=== PATIENT | male | born 1950 | race African-American/Black ===

== ENCOUNTER 2019-11-24 15:36 | Inpatient (IN) ==
[2019-11-24] MEDS ORDERED: SODIUM CHLORIDE 0.9% 1,000 ML IV STA (16:22)
[2019-11-24 16:57] LABS: Basophils % 0.5 % (0.0-0.8); Eosinophils # 0.1 10*3/uL (0.0-0.87); Hematocrit 41.9 VOL% (42.0-52.0); Hemoglobin 14.4 GM/DL (14.0-18.0); Immature Granulocytes % 0.2 %; Immature Granulocytes Absolute 0.01 #; Lymphocytes # 1.4 10*3/uL (1.4-4.0); Mean Corpuscular HGB Conc 34.4 GM/DL (32-36); Mean Corpuscular Volume 89.3 FL (87-102); Mean Platelet Volume 11.6 FL (9.6-12.0); Monocytes % 8.1 % (1.7-12.7); Neutrophils % 68.2 % (38.7-73.9); Platelet Count 168 T/CUMM (130-400); Red Blood Count 4.69 MC/CUMM (3.8-5.5); Red Cell Distribution Width 13.8 % (9.3-17.3); White Blood Count 6.4 T/CUMM (4-12)
[2019-11-24 17:22] LABS: Alanine Aminotransferase 23 U/L (16-61); Albumin 3.8 G/DL (3.4-5.0); Alkaline Phosphatase 71 U/L (45-117); Aspartate Amino Transferase 36 U/L (0-37); Blood Urea Nitrogen 21 MG/DL (7-18); Estimated Glom Filtration Rate 54 ML/MIN; Glucose 73 MG/DL (74-106); Osmolality,Calculated 289.7 MOS/KG (273-304); Partial Thromboplastin Time 28.9 SECS (23.9-33.8); Total Protein 7.5 G/DL (6.4-8.3)
[2019-11-24 17:29] LABS: Troponin I 0.205 NG/ML (0.00-0.045)
[2019-11-24] MEDS ORDERED: hydrALAZINE 20 MG/1 ML VIAL IV STA ×2 (18:34→19:34)
[2019-11-24] MEDS ORDERED: ENOXAPARIN 80 MG/0.8 ML SYRINGE SUBCUT STA (19:46)
[2019-11-24 19:51] LABS: Apearance,Urine CLEAR (Clear); Bilirubin,Urine Negative (Negative); Blood, Urine Small mg/dL (Negative); Glucose,Urine (UA) Negative (Negative); Ketones,Urine 5 mg/dL (Negative); Mucus,Urine Occasional /LPF (Occasional); Nitrite,Urine Negative (Negative); Protein,Urine 30 MG/DL; RBC,Urine <1 /HPF (0-4); Urine Color Straw (Yellow); Urine Specific Gravity 1.008 (1.001-1.035); Urine Urobilinogen < 2.0 EU/DL (0.2-1.0); WBC,Urine <1 /HPF (0-6)
[2019-11-24 20:04] LABS: Barbiturates Screen,Urine Negative (Negative); Benzodiazepines Screen,Urine Negative (Negative); Cannabinoid Screen,Urine Negative (Negative); Opiate Screen,Urine Negative (Negative); Phencyclidine Screen,Urine Negative (Negative)
[2019-11-24] MEDS ORDERED: ONDANSETRON 4 MG/2 ML VIAL IV PRN (21:46)
[2019-11-24] MEDS ORDERED: DOCUSATE SODIUM 100 MG CAPSULE PO PRN (21:46)
[2019-11-24] MEDS ORDERED: ACETAMINOPHEN 325 MG TABLET PO PRN (21:46)
[2019-11-24] MEDS: cloNIDine 0.1 MG TABLET PO PRN (22:53)
[2019-11-25] MEDS: SODIUM CHLORIDE 0.9% 1,000 ML IV SCH ×5 (01:20→22:00)
[2019-11-25] MEDS: cloNIDine 0.1 MG TABLET PO PRN ×2 (03:05→20:34)
[2019-11-25 04:45] LABS: Basophils % 0.8 % (0.0-0.8); Eosinophils # 0.2 10*3/uL (0.0-0.87); Eosinophils % 3.3 % (0.00-10.9); Hematocrit 38.5 VOL% (42.0-52.0); Hemoglobin 13.5 GM/DL (14.0-18.0); Immature Granulocytes % 0.2 %; Immature Granulocytes Absolute 0.01 #; Lymphocytes # 1.5 10*3/uL (1.4-4.0); Lymphocytes % 29.3 % (21.2-54.2); Mean Corpuscular HGB Conc 35.1 GM/DL (32-36); Mean Corpuscular Volume 88.3 FL (87-102); Mean Platelet Volume 11.5 FL (9.6-12.0); Monocytes % 9.2 % (1.7-12.7); Neutrophils % 57.2 % (38.7-73.9); Platelet Count 141 T/CUMM (130-400); Red Blood Count 4.36 MC/CUMM (3.8-5.5); Red Cell Distribution Width 13.6 % (9.3-17.3); White Blood Count 5.2 T/CUMM (4-12)
[2019-11-25 05:23] LABS: Calcium 8.4 MG/DL (8.5-10.1); Risk Ratio 2.55; Thyroid Stimulating Hormone 0.737 uIU/ml (0.358-3.74); VLDL CHOLESTEROL 12.4 MG/DL
[2019-11-25] MEDS ORDERED: MAGNESIUM SULF RIDER 1 GM in PREMIX 1 EACH IV ONE (08:49)
[2019-11-25] MEDS ORDERED: POTASSIUM CHLORIDE 20 MEQ TABLET PO ONE ×2 (08:50→13:00)
[2019-11-25] MEDS ORDERED: ENOXAPARIN 80 MG/0.8 ML SYRINGE SUBCUT SCH (09:00)
[2019-11-25] MEDS: ASPIRIN EC 81 MG TABLET PO SCH (09:10)
[2019-11-25] MEDS: carvediloL 3.125 MG TABLET PO SCH ×2 (09:10→20:34)
[2019-11-25 10:56] LABS: Hypochromasia Slight; Microcytosis Slight; Platelet Estimate Adequate; Target Cells Few
[2019-11-25] MEDS: APIXABAN 5 MG TABLET PO SCH (20:34)
[2019-11-25] MEDS ORDERED: DILTIAZEM 25 MG/5 ML VIAL IV STA (20:44)
[2019-11-25] MEDS ORDERED: LORazepam 2 MG/1 ML VIAL ONE (20:45)
[2019-11-25] MEDS ORDERED: DILTIAZEM 60 MG TABLET PO STA (20:46)
[2019-11-25] MEDS ORDERED: ALBUTEROL/IPRATROPIUM 3 ML NEB RESP TX STA (20:46)
[2019-11-25] MEDS ORDERED: LORazepam 2 MG/1 ML VIAL IV PRN ×2 (20:50→20:55)
[2019-11-25] MEDS ORDERED: LORazepam 2 MG/1 ML VIAL IV STA (20:54)
[2019-11-25] MEDS: DILTIAZEM 60 MG TABLET PO SCH (21:46)
[2019-11-26] MEDS: LORazepam 2 MG/1 ML VIAL IV PRN ×4 (01:27→17:54)
[2019-11-26] MEDS: ALBUTEROL/IPRATROPIUM 3 ML NEB RESP TX SCH ×3 (07:27→19:10)
[2019-11-26] MEDS: carvediloL 3.125 MG TABLET PO SCH ×2 (08:51→21:28)
[2019-11-26] MEDS: ASPIRIN EC 81 MG TABLET PO SCH (08:52)
[2019-11-26] MEDS: DILTIAZEM 60 MG TABLET PO SCH ×4 (08:52→21:28)
[2019-11-26] MEDS: APIXABAN 5 MG TABLET PO SCH ×2 (08:53→21:29)
[2019-11-26] MEDS ORDERED: amLODIPine 5 MG TABLET PO SCH (09:00)
[2019-11-26 09:16] LABS: Basophils % 0.8 % (0.0-0.8); Eosinophils # 0.2 10*3/uL (0.0-0.87); Eosinophils % 4.7 % (0.00-10.9); Hemoglobin 13.8 GM/DL (14.0-18.0); Immature Granulocytes % 0.2 %; Immature Granulocytes Absolute 0.01 #; Lymphocytes # 1.3 10*3/uL (1.4-4.0); Lymphocytes % 26.4 % (21.2-54.2); Mean Corpuscular HGB Conc 35.4 GM/DL (32-36); Mean Corpuscular Volume 88.6 FL (87-102); Mean Platelet Volume 11.2 FL (9.6-12.0); Monocytes % 5.5 % (1.7-12.7); Neutrophils % 62.4 % (38.7-73.9); Platelet Count 143 T/CUMM (130-400); Red Cell Distribution Width 13.8 % (9.3-17.3); White Blood Count 5.1 T/CUMM (4-12)
[2019-11-26 09:52] LABS: Calcium 8.6 MG/DL (8.5-10.1); Osmolality,Calculated 291.7 MOS/KG (273-304)
[2019-11-26 09:56] LABS: Albumin 3.2 G/DL (3.4-5.0); Bilirubin,Total 0.9 MG/DL (0.2-1.0); Calcium 8.6 MG/DL (8.5-10.1); Osmolality,Calculated 288.8 MOS/KG (273-304); Total Protein 6.9 G/DL (6.4-8.3)
[2019-11-26 10:16] LABS: Folate 6.8 NG/ML (5.4-24.0)
[2019-11-26] MEDS: THIAMINE INJ 100 MG, FOLIC ACID INJ 1 MG, MULTIVITAMIN INJ 10 ML in SODIUM CHLORIDE 0.4... IV SCH (10:24)
[2019-11-26 10:50] LABS: Platelet Estimate Adequate; Polychromasia Slight; Target Cells Slight
[2019-11-26] MEDS ORDERED: FUROSEMIDE 40 MG/4 ML VIAL IV ONE (11:50)
[2019-11-26] MEDS: FUROSEMIDE 40 MG/4 ML VIAL IV SCH ×2 (14:19→17:28)
[2019-11-26] MEDS ORDERED: LORazepam 2 MG/1 ML VIAL IV PRN (20:06)
[2019-11-26] MEDS: chlordiazePOXIDE 25 MG CAPSULE PO SCH (21:28)
[2019-11-26] MEDS: ATORVASTATIN 40 MG TABLET PO SCH (21:28)
[2019-11-27] MEDS: FUROSEMIDE 40 MG/4 ML VIAL IV SCH ×3 (01:14→12:47)
[2019-11-27 05:46] LABS: Basophils % 0.7 % (0.0-0.8); Eosinophils # 0.3 10*3/uL (0.0-0.87); Eosinophils % 4.8 % (0.00-10.9); Hematocrit 42.3 VOL% (42.0-52.0); Hemoglobin 15.1 GM/DL (14.0-18.0); Immature Granulocytes % 0.2 %; Immature Granulocytes Absolute 0.01 #; Lymphocytes # 1.9 10*3/uL (1.4-4.0); Lymphocytes % 31.3 % (21.2-54.2); Mean Corpuscular HGB Conc 35.7 GM/DL (32-36); Mean Corpuscular Volume 88.1 FL (87-102); Mean Platelet Volume 11.8 FL (9.6-12.0); Platelet Count 156 T/CUMM (130-400); Red Cell Distribution Width 13.3 % (9.3-17.3); White Blood Count 6.1 T/CUMM (4-12)
[2019-11-27 06:02] LABS: Calcium 9.1 MG/DL (8.5-10.1); Osmolality,Calculated 281.3 MOS/KG (273-304)
[2019-11-27 06:09] LABS: Albumin 3.7 G/DL (3.4-5.0); Bilirubin,Total 1.6 MG/DL (0.2-1.0); Calcium 9.3 MG/DL (8.5-10.1); Osmolality,Calculated 281.3 MOS/KG (273-304); Total Protein 7.6 G/DL (6.4-8.3)
[2019-11-27] MEDS: ALBUTEROL/IPRATROPIUM 3 ML NEB RESP TX SCH ×3 (07:42→19:29)
[2019-11-27] MEDS ORDERED: POTASSIUM CHLORIDE 20 MEQ TABLET PO ONE ×2 (08:32→14:00)
[2019-11-27] MEDS ORDERED: MAGNESIUM SULF RIDER 4 GM in PREMIX 1 EACH IV PRN (08:55)
[2019-11-27] MEDS ORDERED: MAGNESIUM SULF RIDER 2 GM in PREMIX 1 EACH IV PRN (08:55)
[2019-11-27] MEDS ORDERED: DILTIAZEM CD 180 MG CAPSULE PO SCH (09:00)
[2019-11-27] MEDS: chlordiazePOXIDE 25 MG CAPSULE PO SCH ×4 (09:23→21:27)
[2019-11-27] MEDS: PANTOPRAZOLE 40 MG TABLET PO SCH (09:23)
[2019-11-27] MEDS: carvediloL 3.125 MG TABLET PO SCH ×2 (09:23→21:28)
[2019-11-27] MEDS: DILTIAZEM CD 120 MG CAPSULE PO SCH ×2 (09:23→21:27)
[2019-11-27] MEDS: hydrALAZINE 25 MG TABLET PO SCH ×2 (09:23→21:27)
[2019-11-27] MEDS: APIXABAN 5 MG TABLET PO SCH ×2 (09:24→21:27)
[2019-11-27] MEDS: ASPIRIN EC 81 MG TABLET PO SCH (09:24)
[2019-11-27] MEDS: THIAMINE INJ 100 MG, FOLIC ACID INJ 1 MG, MULTIVITAMIN INJ 10 ML in SODIUM CHLORIDE 0.4... IV SCH (11:18)
[2019-11-27] MEDS: ATORVASTATIN 40 MG TABLET PO SCH (21:27)
[2019-11-28 05:57] LABS: Basophils % 0.4 % (0.0-0.8); Eosinophils # 0.2 10*3/uL (0.0-0.87); Eosinophils % 3.8 % (0.00-10.9); Hematocrit 40.2 VOL% (42.0-52.0); Hemoglobin 14.4 GM/DL (14.0-18.0); Immature Granulocytes % 0.4 %; Immature Granulocytes Absolute 0.02 #; Lymphocytes # 1.8 10*3/uL (1.4-4.0); Lymphocytes % 32.3 % (21.2-54.2); Mean Corpuscular HGB Conc 35.8 GM/DL (32-36); Mean Corpuscular Volume 88.2 FL (87-102); Mean Platelet Volume 11.7 FL (9.6-12.0); Monocytes % 7.7 % (1.7-12.7); Neutrophils % 55.4 % (38.7-73.9); Platelet Count 153 T/CUMM (130-400); Red Blood Count 4.56 MC/CUMM (3.8-5.5); Red Cell Distribution Width 13.2 % (9.3-17.3); White Blood Count 5.6 T/CUMM (4-12)
[2019-11-28 06:17] LABS: Calcium 8.8 MG/DL (8.5-10.1); Osmolality,Calculated 280.5 MOS/KG (273-304)
[2019-11-28] MEDS: ALBUTEROL/IPRATROPIUM 3 ML NEB RESP TX SCH ×3 (07:14→22:07)
[2019-11-28] MEDS: APIXABAN 5 MG TABLET PO SCH (09:25)
[2019-11-28] MEDS: hydrALAZINE 25 MG TABLET PO SCH (09:25)
[2019-11-28] MEDS: carvediloL 3.125 MG TABLET PO SCH ×2 (09:25→21:47)
[2019-11-28] MEDS: DILTIAZEM CD 120 MG CAPSULE PO SCH ×2 (09:25→21:46)
[2019-11-28] MEDS: ASPIRIN EC 81 MG TABLET PO SCH (09:26)
[2019-11-28] MEDS: chlordiazePOXIDE 25 MG CAPSULE PO SCH ×4 (09:26→21:46)
[2019-11-28] MEDS: PANTOPRAZOLE 40 MG TABLET PO SCH (09:26)
[2019-11-28] MEDS: THIAMINE INJ 100 MG, FOLIC ACID INJ 1 MG, MULTIVITAMIN INJ 10 ML in SODIUM CHLORIDE 0.4... IV SCH (09:53)
[2019-11-28] MEDS ORDERED: POTASSIUM CHLORIDE 20 MEQ TABLET PO ONE (13:07)
[2019-11-28] MEDS: ATORVASTATIN 40 MG TABLET PO SCH (21:47)
[2019-11-29] MEDS: ALBUTEROL/IPRATROPIUM 3 ML NEB RESP TX SCH ×3 (07:21→19:10)
[2019-11-29] MEDS: carvediloL 3.125 MG TABLET PO SCH ×2 (09:40→21:38)
[2019-11-29] MEDS: DILTIAZEM CD 120 MG CAPSULE PO SCH ×2 (09:40→21:36)
[2019-11-29] MEDS: chlordiazePOXIDE 25 MG CAPSULE PO SCH ×2 (09:41→21:38)
[2019-11-29] MEDS: PANTOPRAZOLE 40 MG TABLET PO SCH (09:41)
[2019-11-29] MEDS: ASPIRIN EC 81 MG TABLET PO SCH (09:41)
[2019-11-29] MEDS ORDERED: POTASSIUM CHLORIDE 20 MEQ TABLET PO PRN (13:27)
[2019-11-29] MEDS: ATORVASTATIN 40 MG TABLET PO SCH (21:38)
[2019-11-30 05:04] LABS: Basophils % 0.4 % (0.0-0.8); Eosinophils # 0.2 10*3/uL (0.0-0.87); Eosinophils % 4.4 % (0.00-10.9); Hemoglobin 14.3 GM/DL (14.0-18.0); Immature Granulocytes % 0.2 %; Immature Granulocytes Absolute 0.01 #; Lymphocytes # 1.2 10*3/uL (1.4-4.0); Lymphocytes % 26.8 % (21.2-54.2); Mean Corpuscular HGB Conc 35.8 GM/DL (32-36); Mean Corpuscular Volume 86.8 FL (87-102); Mean Platelet Volume 11.5 FL (9.6-12.0); Monocytes % 11.4 % (1.7-12.7); Neutrophils % 56.8 % (38.7-73.9); Platelet Count 129 T/CUMM (130-400); Red Blood Count 4.61 MC/CUMM (3.8-5.5); Red Cell Distribution Width 13.3 % (9.3-17.3); White Blood Count 4.6 T/CUMM (4-12)
[2019-11-30 05:15] LABS: Calcium 8.6 MG/DL (8.5-10.1); Osmolality,Calculated 283.3 MOS/KG (273-304)
[2019-11-30 05:34] LABS: Hypochromasia 1+; Platelet Estimate Normal
[2019-11-30] MEDS: ALBUTEROL/IPRATROPIUM 3 ML NEB RESP TX SCH (07:39)
[2019-11-30 08:11] VITALS: BP 151/98
[2019-11-30] MEDS: chlordiazePOXIDE 25 MG CAPSULE PO SCH (08:42)
[2019-11-30] MEDS: carvediloL 3.125 MG TABLET PO SCH (08:42)
[2019-11-30] MEDS: DILTIAZEM CD 120 MG CAPSULE PO SCH (08:42)
[2019-11-30] MEDS: ASPIRIN EC 81 MG TABLET PO SCH (08:42)
[2019-11-30] MEDS: PANTOPRAZOLE 40 MG TABLET PO SCH (08:42)
[2019-11-30] MEDS ORDERED: APIXABAN 5 MG TABLET PO SCH (09:00)
== END 2019-11-30 10:58 | DRG 65 ==
LOC: EDBD → EDUNIT# → N.ED 15:36 → N.EDINP 15:36 → SUATTDRO 21:40 → N.TELES 11-25 01:33 → SUATTDRO 11-27 14:47
PROVIDERS: ADMIT Family Medicine; ATTEND Internal Medicine